=== PATIENT | female | born 1970 | race Native Hawaiian/Other Pacific Islander ===

== ENCOUNTER 2021-05-29 06:57 | Emergency (ER) | payer OTHER | END 2021-05-29 08:03 | disposition home or self-care (01) | LOC: CSHERS 06:57 | DX: S39.012A Strain of muscle, fascia and tendon of lower back, initial encounter (principal); E11.9 Type 2 diabetes mellitus without complications; X58.XXXA Exposure to other specified factors, initial encounter | CPT/HCPCS: 99283 ==

== ENCOUNTER 2025-03-18 15:00 | Emergency (ER) | payer OTHER ==
[2025-03-18] MEDS ORDERED: Acetaminophen 500 MG TAB ONE (15:43)
== END 2025-03-18 15:52 | disposition home or self-care (01) ==
LOC: EEVIPCON 15:00 → CSHERS 15:00
DX: S39.92XA Unspecified injury of lower back, initial encounter (principal); E11.9 Type 2 diabetes mellitus without complications; X50.1XXA Overexertion from prolonged static or awkward postures, initial encounter; Y93.89 Activity, other specified
CPT/HCPCS: 99283